=== PATIENT | female | born 1990 | race American Indian/Alaskan Native ===

== ENCOUNTER 2021-01-26 10:48 | Day surgery (SDC) | payer MEDICAID ==
--- NOTE | 2021-01-24 14:07 | History and Physical Report ---
History of Present Illness Date of examination: 01/24/21 Chief complaint: desiring permanent sterilization History of present illness: 30 yo c/b HTN (on amlodipine, s/p preop consult) desiring permanent sterilization. BCM x 18 years, no longer wishes to use hormonal BCM. Understanding that this procedure is consider permanent. Patient expressed understanding and wished to proceed. Past History Past Medical History: hypertension Past Surgical History: other (LEEP) [employer] History: abnormal PAP smear (most recently negative), chlamydia (most recently negative) Family/Genetic History: none Social history: smoking (tobacco and MJ) - Obstetrical History : 2 Para: 2 Hx # Term Pregnancies: 2 Number of Living Children: 2 Medications and Allergies Allergies Allergy/AdvReac Type Severity Reaction Status Date / Time No Known Allergies Allergy Verified 01/23/21 15:21 Home Medications Medication Instructions Recorded Confirmed Last Taken Type amLODIPine [Norvasc] 10 mg PO DAILY 01/23/21 01/23/21 Unknown History Review of Systems All systems: negative (expect HPI) - Physical Exam Cardiovascular: Regular rate Lungs: Positive: Clear to auscultation, Normal air movement Abdomen: Positive: normal appearance Results All other labs normal. Assessment and Plan - Patient Problems (1) Encounter for sterilization Status: Acute Plan to address problem: To OR for bilateral tubal ligation with Filshie Clips --Consented in the chart --Questions solicited and answered --Discussed permanent nature of procedure. Patient expressed understanding
[~2021-01-26 10:48] MED LIST: BUPIVACAINE/PF (0.5%) 5 MG/1 ML 10 ML VIAL INFILTRATI ONE; LACTATED RINGERS 1,000 ML IV SCH
[2021-01-26 11:54] LABS: Basophils % (Auto) 0.7 % (0.0-1.8); Eosinophils % (Auto) 0.7 % (0.0-4.3); Hematocrit 42.4 % (30.3-42.9); Hemoglobin 14.4 gm/dl (10.1-14.3); Lymphocytes # (Auto) 2.6 K/mm3 (1.2-5.4); Lymphocytes % (Auto) 43.2 % (13.4-35.0); Mean Corpuscular HGB Conc 34 % (30-34); Mean Corpuscular Volume 88 fl (79-97); Monocytes # (Auto) 0.5 K/mm3 (0.0-0.8); Monocytes % (Auto) 7.6 % (0.0-7.3); Platelet Count 230 K/mm3 (140-440); Red Blood Count 4.81 M/mm3 (3.65-5.03); Red Cell Distribution Width 12.7 % (13.2-15.2)
--- NOTE | 2021-01-26 12:05 | Anesthesia Day of Surgery ---
Anesthesia Day of Surgery - Day of Surgery Patient Examined: Yes Patient H&P Reviewed: Yes Patient is NPO: Yes
[2021-01-26] MEDS ORDERED: MAGNESIUM OXIDE 400 MG TAB PO ONE (12:06)
[2021-01-26] MEDS ORDERED: ONDANSETRON 4 MG/2 ML INJ IV PRN (12:06)
[2021-01-26] MEDS ORDERED: ACETAMINOPHEN 500 MG TAB PO ONE (12:06)
[2021-01-26] MEDS ORDERED: HYDROmorphone 1 MG/1 ML INJ IV PRN ×2 (12:06)
--- NOTE | 2021-01-26 12:06 | Anesthesia Consultation ---
Anesthesia Consult and Med Hx Date of service: 01/26/21 - Airway Anesthetic Teeth Evaluation: Good ROM Head & Neck: Adequate Mental/Hyoid Distance: Adequate Mallampati Class: Class II Intubation Access Assessment: Good - Pre-Operative Health Status ASA Pre-Surgery Classification: ASA2 Proposed Anesthetic Plan: General - Pulmonary Hx Smoking: Yes Hx Asthma: No COPD: No Hx Pneumonia: No - Cardiovascular System Hx Hypertension: Yes - Central Nervous System Hx Seizures: No Hx Psychiatric Problems: No - Gastrointestinal Hx Gastroesophageal Reflux Disease: No - Endocrine Hx Renal Disease: No Hx End Stage Renal Disease: No Hx Hypothyroidism: No Hx Hyperthyroidism: No - Hematic Hx Anemia: No Hx Sickle Cell Disease: No - Other Systems Hx Alcohol Use: No Hx Substance Use: Yes (Marijuana occas) Hx Cancer: No
[2021-01-26] MEDS ORDERED: CELECOXIB 200 MG CAP PO NR (13:00)
[2021-01-26] MEDS ORDERED: MIDAZOLAM 2 MG/2 ML INJ IV NR (13:00)
[2021-01-26] MEDS ORDERED: GABAPENTIN 300 MG CAP PO NR (13:00)
[2021-01-26] MEDS ORDERED: ONDANSETRON 4 MG/2 ML INJ ONE (13:12)
[2021-01-26] MEDS ORDERED: fentaNYL 100 MCG/2 ML INJ ONE (13:12)
[2021-01-26] MEDS ORDERED: dexAMETHasone 20 MG/5 ML VIAL ONE (13:12)
[2021-01-26] MEDS ORDERED: KETOROLAC 30 MG/1 ML INJ ONE (13:12)
[2021-01-26] MEDS ORDERED: ROCURONIUM 50 MG/5 ML INJ IV ONE ×2 (13:12→14:19)
[2021-01-26] MEDS ORDERED: propofoL 200 MG/20 ML VIAL IV ONE (13:12)
[2021-01-26] MEDS ORDERED: LIDOCAINE MPF (2%) 20 MG/1 ML VIAL 5 ML ONE (13:12)
[2021-01-26] MEDS ORDERED: BUPIVACAINE/PF (0.5%) 5 MG/1 ML 30 ML VIAL INFILTRATI ONE ×2 (13:35→14:40)
[2021-01-26] MEDS ORDERED: GLYCOPYRROLATE 0.4 MG/2 ML INJ ONE (14:32)
[2021-01-26] MEDS ORDERED: NEOSTIGMINE 10MG/10 ML INJ MDV ONE (14:32)
[2021-01-26] MEDS ORDERED: LACTATED RINGERS 1,000 ML ONE (14:34)
[2021-01-26] MEDS ORDERED: oxyCODONE /ACETAMINOPHEN 5-325MG TAB PO PRN (14:38)
[2021-01-26] MEDS ORDERED: IBUPROFEN 600 MG TAB PO PRN (14:38)
--- NOTE | 2021-01-26 14:40 | Procedure Note ---
Date of procedure: 01/26/21 Pre-op diagnosis: desiring permanent sterilization Post-op diagnosis: same Procedure: Preoperative diagnosis: Multiparous woman desiring permanent sterilization Postoperative diagnosis: Same Operation performed: 1. Exam under anesthesia 2. Laparoscopic bilateral tubal ligation with Filshie clips Surgeon: James Pedersen Anesthesia: General endotracheal anesthesia Estimated blood loss 5 cc IVF 1000cc UOP 50cc Pathology Specimens: none Complications none Disposition and condition: To the PACU in stable condition and then discharged home Findings: 1. Small, mobile, anteverted uterus without adnexal masses on EUA 2. Normal uterus and bilateral tubes and ovaries on laparoscopy 3. Normal-appearing liver, gallbladder next Statement of medical necessity: 30 yo c/b HTN (on amlodipine, s/p preop consult) desiring permanent sterilization. BCM x 18 years, no longer wishes to use hormonal BCM. The patient was extensively counseled and offered reversal methods of contraception but declined. She was informed about the procedure failure rates and regret rates under the age of 30 years. The procedure risk, benefits, indications and alternatives were thoroughly reviewed with patient. Description of operation: After obtaining informed consent, the patient was taken to the operating room where satisfactory general endotracheal anesthesia was established. The patient was placed in modified supine position using Jerrod stirrups ensuring proper positioning and cushioning to avoid nerve injury. An exam under anesthesia was performed with the findings noted above. She was prepped and draped in the usual sterile fashion. Straight catheterization of the bladder was performed. A Vcare manipulator was placed in order to aid in uterine manipulation. Attention was directed to the abdomen. A 5 mm incision was placed supraumbilically. With the patient horizontal, the camera and 5 mm trocar were introduced into the abdominal cavity while tenting up the abdominal wall with towel clips in order to gain entry into the abdominal cavity. Intraperitoneal placement was confirmed with initial pressure of 15 mmHg on insufflation. Pneumoperitoneum was obtained in the placed and the patient was placed in Trendelenburg position. A midline suprapubic incision was made with a scalpel and a 8 mm trocar was placed under direct visualization. The blunt grasper was used in order to inspect the pelvis with the findings noted above. The fallopian tubes were identified and followed out to the fimbriated ends. The entire mid isthmic girth of the left tube was grasped perpendicularly without difficulty with applicator. The clip was applied and good applied with tubal blanching was noted. There was no bleeding in the mesosalpinx. The same procedure was performed on contralateral side. This procedure was completed x2 with a result of 2 Filshie clips on each tube. All instruments were removed. Suprapubic trocar was removed under direct verbalization with port site hemostasis noted. The pneumoperitoneum was reduced and the umbilical trocar was removed under direct visitation while with withdrawing the laparoscope. The patient was returned to horizontal dorsal supine position. The skin incisions were closed with 2-0 Vicryl in a subcuticular fashion and dressed with Dermabond. The Vcare manipulator was removed from vagina. The patient tolerated the procedure well was extubated without difficulty and transferred recovery room in good condition. Sponge, needle instrument counts were correct x2. There is no surgical or anesthetic complications. Anesthesia: GETA Surgeon: JAMES PEDERSEN JR Estimated blood loss: other (5 cc) IV fluids: 1,000 Urine output: 50 Pathology: none Condition: stable Disposition: same day
--- NOTE | 2021-01-26 16:46 | Post Anesthesia Evaluation ---
- Post Anesthesia Evaluation Patient Participated: Yes Airway Patent: Yes Stable Respiratory Function: Yes Nausea/Vomiting: No Temp > 96.8F: Yes Pain Manageable: Yes Adequeate Hydration: Yes Anesthesia Complications: No Block Receding Appropriately: Not Applicable Patient on Ventilator: No
[2021-01-26 17:07] VITALS: BP 133/76
== END 2021-01-26 10:49 | disposition home or self-care (01) ==
LOC: OR 10:48
PROVIDERS: ATTEND Obstetrics & Gynecology
DX: Z30.2 Encounter for sterilization (principal); F17.210 Nicotine dependence, cigarettes, uncomplicated; I10 Essential (primary) hypertension; Z79.899 Other long term (current) drug therapy; Z98.890 Other specified postprocedural states
CPT/HCPCS: 36415; 58671; 81025; 85025; 86850; 86900; 86901; J1100; J1885; J2250; J2405; J2704; J2710; J3010; J7120

== ENCOUNTER 2022-03-16 08:10 | Day surgery (SDC) | payer MEDICAID ==
[2022-03-14 10:28] LABS: Hematocrit 36.6 % (30.3-42.9); Hemoglobin 12.1 gm/dl (10.1-14.3); Mean Corpuscular HGB Conc 33 % (30-34); Mean Corpuscular Volume 84 fl (79-97); Platelet Count 234 K/mm3 (140-440); Red Blood Count 4.37 M/mm3 (3.65-5.03); Red Cell Distribution Width 17.6 % (13.2-15.2)
[2022-03-16] MEDS ORDERED: LACTATED RINGERS 1,000 ML ONE (08:22)
[2022-03-16] MEDS ORDERED: MAGNESIUM OXIDE 400 MG TAB PO ONE (09:53)
[2022-03-16] MEDS ORDERED: ONDANSETRON 4 MG/2 ML INJ IV PRN (09:53)
[2022-03-16] MEDS ORDERED: HYDROmorphone 1 MG/1 ML INJ IV PRN ×2 (09:53)
[2022-03-16] MEDS ORDERED: ACETAMINOPHEN 500 MG TAB PO ONE (09:53)
--- NOTE | 2022-03-16 09:54 | Anesthesia Day of Surgery ---
Anesthesia Day of Surgery - Day of Surgery Patient Examined: Yes Patient H&P Reviewed: Yes Patient is NPO: Yes
--- NOTE | 2022-03-16 09:55 | Anesthesia Consultation ---
Anesthesia Consult and Med Hx Date of service: 03/16/22 - Airway Anesthetic Teeth Evaluation: Chipped ROM Head & Neck: Adequate Mental/Hyoid Distance: Adequate Mallampati Class: Class II Intubation Access Assessment: Good - Pre-Operative Health Status ASA Pre-Surgery Classification: ASA2 Proposed Anesthetic Plan: General - Pulmonary Hx Smoking: Yes (Socially) Hx Asthma: No COPD: No Hx Pneumonia: No Hx Sleep Apnea: No - Cardiovascular System Hx Hypertension: Yes - Central Nervous System Hx Seizures: No Hx Psychiatric Problems: No - Gastrointestinal Hx Gastroesophageal Reflux Disease: No - Endocrine Hx Renal Disease: No Hx End Stage Renal Disease: No Hx Hypothyroidism: No Hx Hyperthyroidism: No - Hematic Hx Anemia: No Hx Sickle Cell Disease: No - Other Systems Hx Alcohol Use: Yes (Occas) Hx Substance Use: Yes (Marijuana occas) Hx Cancer: No Hx Obesity: No
[2022-03-16] MEDS ORDERED: CELECOXIB 200 MG CAP PO NR (10:00)
[2022-03-16] MEDS ORDERED: MIDAZOLAM 2 MG/2 ML INJ IV NR (10:00)
[2022-03-16] MEDS ORDERED: LACTATED RINGERS 1,000 ML IV SCH (10:00)
[2022-03-16] MEDS ORDERED: ceFAZolin/STERILE WATER 2 GM/20 ML SYRINGE IV NR (10:00)
[2022-03-16] MEDS ORDERED: propofoL 200 MG/20 ML VIAL IV ONE (10:18)
[2022-03-16] MEDS ORDERED: LIDOCAINE MPF (2%) 20 MG/1 ML VIAL 5 ML ONE (10:18)
[2022-03-16] MEDS ORDERED: HYDROmorphone 1 MG/1 ML INJ ONE (10:18)
[2022-03-16] MEDS ORDERED: dexAMETHasone 20 MG/5 ML VIAL ONE (10:26)
[2022-03-16] MEDS ORDERED: SODIUM CHLORIDE 0.9% IRR 1,500 ML BOTTLE IR ONE (10:41)
[2022-03-16] MEDS ORDERED: SODIUM CHLORIDE 0.9% IRRIG SOLN 2000 ML IR ONE (10:41)
[2022-03-16] MEDS ORDERED: SILVER NITRATE APPLICATOR 1 EA TP ONE (11:22)
[2022-03-16] MEDS ORDERED: ONDANSETRON 4 MG/2 ML INJ ONE (11:24)
[2022-03-16] MEDS ORDERED: KETOROLAC 30 MG/1 ML INJ ONE (11:28)
--- NOTE | 2022-03-16 11:54 | Procedure Note ---
Date of procedure: 03/16/22 Pre-op diagnosis: menometrorrhagia Post-op diagnosis: same Procedure: Hysteroscopy, polypectomy with sharp curettage, Novasure endometrial ablation After the risks, benefits and alternatives of procedure was explained and pt with signed consents, pt was taken to OR via stretcher with IV running. Per nurse pt had just voided. Time out was done and pt given general anesthesia, preop abx and placed in dorsal lithotomy position, prepped and draped in usual sterile fashion. Red rubber cath used to drain the bladder. Bimanual exam done with the above findings. Speculum placed in the vagina, single tooth tenaculum used to grasp the anterior lip of the cervix. Measurements of the uterine cavity done and same noted to be 5.5 cm. Hysteroscopic fluid of normal saline used and the hysteroscope gently advanced to the fundus, right tubal ostia seen and fluffy cavity obscured the left ostia. Polyps forceps used to removed some of endometrial tissue however no distinct polyp seen. The hysteroscope was then removed and sharp curettage done to all quadrants and tissue sent for sampling. Novasure device was then removed and sterile technique maintained. Calculations obtained as stated above with Length: 5.5cm and width 3.8cm and Power was 115watts and time take 1:12 min/secs. Delay in procedure was due to CO2 container empty and trouble shooting prior to starting this portion of the procedure. The device was unlocked and returned to it's original position prior to deployment at the tip to prevent any injury to cavity as the device was removed. Tenaculum removed and site oozing to left and same hemostatic with silver nitrate sticks x2. Speculum removed without difficulty. Sponge and instrument counts correct x2 Pt was extubated without difficulty and taken to recovery room stable. INTAKE: 800cc crystalloids OUTPUT: 50cc EBL: less than 5cc Hysteroscopic Fluid deficit was 300cc of normal saline Findings: Retroverted uterus, normal adnexa; Very Fluffy endometrial cavity, right tubal ostia seen and left tubal ostia blocked by fluffy endometrium. Possible polyps hidden on the thick endometrium. Anesthesia: GETA Surgeon: MARISSA KATE Estimated blood loss: minimal Pathology: list (endometrial cavity polyps and curettings/contents) Specimen disposition: to lab Condition: stable Disposition: same day
--- NOTE | 2022-03-16 12:11 | Discharge Summary ---
Providers - Providers Date of Admission: 03/16/22 Date of discharge: 03/16/22 Attending physician: MARISSA KATE Primary care physician: ERNESTINA INTERIANO MD Hospitalization Reason for admission: other (Menometrorrhagia) Procedure: other (Hysteroscopy, Polypectomy with curettage, Novasure ablation) complications: none Discharge diagnosis: other (menometrorrhagia) Hospital course: [employer] pt with menometrorrhagia that failed medical mgt. Admitted and had same day procedure without complications and was discharge home same day to follow in office in 2wks Condition at discharge: Good Disposition: 01 HOME / SELF CARE / HOMELESS - Discharge Diagnoses (1) Menometrorrhagia Status: Acute (2) S/P endometrial ablation Status: Acute (3) S/P dilation and curettage Status: Acute Plan - Discharge Medications Prescriptions: Ibuprofen [Motrin] 800 mg PO Q8HR PRN 21 Days #40 tablet PRN Reason: Pain, Moderate (4-6) oxyCODONE /ACETAMINOPHEN [Percocet 5/325] 1 tab PO Q4HR PRN 21 Days #30 tab PRN Reason: Pain , Severe (7-10) - Provider Discharge Summary Additional instructions: [] Smoking cessation referral if applicable(refer to patient education folder for contact #) [] Refer to [facility] Booklet Call your doctor immediately for: * Fever > 100.5 * Heavy vaginal bleeding ( >1 pad per hour) * Severe persistent headache * Shortness of breath * Reddened, hot, painful area to leg or breast * Drainage or odor from incision. * Keep incision clean and dry at all times and follow doctor's instructions regarding bathing/showering - Follow up plan Follow up: MARISSA KATE MD [Staff Physician] - 14 Days ERNESTINA INTERIANO MD [Primary Care Provider] - 7 Days
[2022-03-16 14:15] VITALS: BP 141/87
== END 2022-03-16 13:30 | disposition home or self-care (01) ==
LOC: OR 08:10
PROVIDERS: ATTEND Obstetrics & Gynecology
DX: N92.1 Excessive and frequent menstruation with irregular cycle (principal); I10 Essential (primary) hypertension; F17.210 Nicotine dependence, cigarettes, uncomplicated; Z98.51 Tubal ligation status; Z79.899 Other long term (current) drug therapy; Z98.890 Other specified postprocedural states; Z72.89 Other problems related to lifestyle
CPT/HCPCS: 36415; 58563; 84703; 85027; 88305; J0690; J1100; J1170; J1885; J2250; J2405; J2704; J3490; J7120